=== PATIENT | male | born 1975 | race Caucasian/White ===

== ENCOUNTER 2016-07-10 21:16 | Emergency (ER) | payer SELFPAY ==
[2016-07-10 21:25] VITALS: BMI 22.1
--- NOTE | 2016-07-10 21:40 | C.PDOC ---
History Of Present Illness 41 yr old male presents to the ER with complaints of fever and sore throat, Left >Right, for the past 2 days. Patient is complaining of swollen lymph nodes. Patient reports he took Tylenol 1hr [employer]. Patient denies chest pain, SOB, nausea , vomiting or headache. Time Seen by Provider: 07/10/16 21:25 Chief Complaint (Nursing): ENT Problem History Per: Patient History/Exam Limitations: None Onset/Duration Of Symptoms: Days (2) Past Medical History Reviewed: Historical Data, Nursing Documentation, Vital Signs Vital Signs: Last Vital Signs Temp 98.9 F 07/10/16 21:45 Pulse 92 H 07/10/16 21:45 Resp 18 07/10/16 21:45 BP 110/65 07/10/16 21:45 Pulse Ox 96 07/11/16 02:49 - Medical History PMH: Gastritis Family History: States: No Known Family Hx - Social History Hx Alcohol Use: No Hx Substance Use: No - Immunization History Hx Tetanus Toxoid Vaccination: Yes Hx Influenza Vaccination: Yes Hx Pneumococcal Vaccination: Yes Review Of Systems Except As Marked, All Systems Reviewed And Found Negative. Constitutional: Positive for: Fever (Subjective) ENT: Positive for: Throat Pain (Sore throat. Left>Right ) Cardiovascular: Negative for: Chest Pain Respiratory: Negative for: Shortness of Breath Gastrointestinal: Negative for: Nausea, Vomiting Neurological: Negative for: Headache Physical Exam - Physical Exam Appears: Well, Non-toxic, Other (uncomfortable) Skin: Warm, Dry Head: Atraumatic, Normacephalic Ear(s): Bilateral: Normal Nose: Normal Oral Mucosa: Moist Tongue: Normal Appearing Lips: Normal Appearing Throat: Erythema (left more than right), Exudate (left more than right), Other ( tonsils not touching, pharynx erythematous) Neck: Normal, Normal ROM, No Midline Cervical Tenderness, Supple Lymphatic: Adenopathy (bilateral submandibular) Chest: Symmetrical, No Tenderness Cardiovascular: Rhythm Regular, No Murmur Respiratory: Normal Breath Sounds, No Rales, No Rhonchi, No Stridor, No Wheezing Extremity: Normal ROM, No Swelling Neurological/Psych: Oriented x3, Normal Speech, Normal Cognition, Normal Cranial Nerves, Normal Motor, Normal Sensation ED Course And Treatment O2 Sat by Pulse Oximetry: 96 Medical Decision Making Medical Decision Making: pt with swollen tonsils, left more than right, with exudate and fever. will tx with amoix and nsaids. d/c home. PLAN: * Amoxicillin PO * Motrin PO Disposition Counseled Patient/Family Regarding: Diagnosis, Need For Followup, Rx Given - Disposition Referrals: Clinic,Med Surg [Non-Staff] - [facility] [Outside] [facility] [Outside] Disposition: HOME/ ROUTINE Disposition Time: 21:41 Condition: STABLE Additional Instructions: Gargle with warm salty water several times a day. Take antibiotics as prescribed. Tylenol or Motrin for fever and pain. Return to ER for any worse symptoms, Drink warm fluids- tea with honey is soothing. Prescriptions: Amoxicillin 500 mg PO TID #30 tablet Instructions: Pharyngitis (ED) - Clinical Impression Clinical Impression: Exudative pharyngitis - PA / [employer]IL[employer] / Resident Statement MD/DO has reviewed & agrees with the documentation as recorded. - Scribe Statement The provider has reviewed the documentation as recorded by the Scribe Karla Dallas All medical record entries made by the Kasiaibmary jo were at my direction and personally dictated by me. I have reviewed the chart and agree that the record accurately reflects my personal performance of the history, physical exam, medical decision making, and the department course for this patient. I have also personally directed, reviewed, and agree with the discharge instructions and disposition.
[2016-07-10 21:42] VITALS: RESP 18
[2016-07-10 21:46] VITALS: BP 110/65; PULSE 92; TEMP 98.9
[2016-07-10 21:48] VITALS: O2SAT 96
== END 2016-07-10 21:47 | disposition home or self-care (01) ==
LOC: C.ER 21:16
DX: J02.9 Acute pharyngitis, unspecified (principal)